=== PATIENT | female | born 2000 | race Caucasian/White ===

== ENCOUNTER 2020-06-14 04:20 | Inpatient (IN) ==
[2020-06-14] MEDS ORDERED: KETOROLAC 30 MG/ML VIAL IV ONE (04:42)
[2020-06-14] MEDS ORDERED: SODIUM CHLORIDE 0.9% 1000ML 1,000 ML IV ONE (04:42)
--- NOTE | 2020-06-14 04:50 | Emergency Department Note ---
History of Present Illness General Chief complaint: Back Injury/Pain Stated complaint: HARD TO BREATH, +COVID Time Seen by Provider: 06/14/20 04:31 Source: patient and family (mother father on speakerphone) Mode of arrival: ambulatory Limitations: no limitations History of Present Illness Provider complaint: + Covid, back pain Onset (ago): day(s) 4 Location: back Radiation: non-radiation Severity: moderate Pain Consistency: + intermittent Maximum Pain Intensity: 5 Current Pain Intensity: 5 Quality: + stabbing Relieved By: + immobilization Exacerbated By: + other (deep breath) Associated symptoms: + malaise and + weakness Treatments prior to arrival: other (Tylenol) This is a 20-year-old female who presents emergency department complaining of back pain. The patient reports she was tested for COVID on Monday. She received the test back for positive result on . She has been complaining of generalized rundown feeling since that time. She also vomited this morning. She has no other complaints however this morning woke up from severe back pain. She reports the pain started earlier today. She has been taken Tylenol thousand milligrams every 6 hours. She last took it at 3 AM. She is concerned that it is hurts to take a deep breath and is feeling extremely anxious. She reports she had nausea and vomiting this mornin. Home Medications Home Medications Medication Instructions Recorded Confirmed Type etonogestrel-ethinyl estradiol 1 vag ring VAGINAL CONT 06/14/20 06/14/20 History Allergies Allergy/AdvReac Type Severity Reaction Status Date / Time No Known Allergies Allergy Unverified 06/14/20 04:29 Past Med/Surg History Medical History No pertinent past medical history Social History Smoking Status: Never smoker Second Hand Exposure: No; Hx Alcohol Use: No Hx Substance Use: No Preferred Language: [place] Communication Ability: Effective Entry Level Account Executive Required: No Beliefs That Will Affect Care: None Current Living Situation: Alone Feels Safe at Home: Yes Review of Systems A total of 10 systems reviewed and were otherwise negative Physical Exam Vital Signs Vital Signs - 24 hr 06/14/20 04:25 06/14/20 06:08 09/13/20 06:13 Temperature 36.5 C Temperature Source Temporal Artery Scan Pulse Rate 67 Pulse Rate [Left Radial] 54 L Pulse Rhythm [Left Radial] Regular Pulse Strength [Left Radial] Normal Respiratory Rate 22 16 Respiratory Effort / Characteristics Non-Labored Spontaneous Non-Labored Respiratory Depth Normal Normal Respiratory Pattern Regular Blood Pressure 95/53 L Blood Pressure [Left Arm] 114/67 Blood Pressure Mean 67 Blood Pressure Mean [Left Arm] 82 Blood Pressure Position Sitting Blood Pressure Position [Left Arm] Lying Pulse Oximetry 99 99 99 Oxygen Delivery Method Room Air Room Air Sepsis Recent Fever Within 48 Hours No Sepsis New/Unexplained Change in Mental Status No Sepsis Action Taken by Nursing No Action Required VITAL SIGNS - Vital signs and nursing notes were reviewed. GENERAL - 20-year-old female appearing stated age who is in no acute distress, crying on exam. Communicates well with provider and answers questions appropriately. SKIN - Without rashes. HEAD - NC/AT. EYES - PERRL with EOMI bilaterally. Sclera anicteric. Palpebral conjunctiva pink and moist with no injection noted. EARS - No deformities of external structures noted on gross examination bilaterally. No pain elicited with palpation of the tragus bilaterally. External auditory canals without discharge or otorrhea. Tympanic membranes pearly bhakta without retraction or bulging. No fluid or purulent material visualized behind the TM. Handle of malleus, umbo, cone of light, pars tensa/flaccid all easily visualized. NOSE - Midline and without cyanosis. No epistaxis or purulent drainage noted. Septum midline without deviation or septal hematoma noted. MOUTH/OROPHARYNX - Without perioral cyanosis. Buccal mucosa pink and moist and without leukoplakia. Tongue midline with equal elevation of palate bilaterally. No tonsillar hypertrophy, erythema, or exudates noted. dentition noted. NECK - Neck with FROM. Supple to palpation. lymphadenopathy noted. No nuchal rigidity. LUNGS - Chest wall symmetric without accessory muscle use, intercostals retractions, or central cyanosis. Normal vesicular breath sounds CTA B/L. No wheezes, rales, or rhonchi appreciated. CARDIAC - RRR with S1/S2. No murmur, rubs, or gallops appreciated. ABDOMEN - Abdominal contour without pulsations or visible masses. BS normoactive all four quadrants. No tenderness, palpable masses, hepatosplenomegaly, or ascites noted. EXTREMITIES - No clubbing or peripheral cyanosis. No pretibial edema present. +3/5 radial, posterior tibial, and dorsalis pedis pulses palpated throughout. +5/5 strength noted in UE/LE bilaterally. NEUROLOGIC - Cranial nerves II through XII grossly intact. Sensory intact to light touch throughout. Patellar reflexes +2/4. PSYCH - A&Ox3 and cooperates fully with examiner. Pt is very pleasant and interacts well with examiner. Course Administered Medications Colchicine (Colchicine 0.6 Mg Tab) 0.6 mg PO BID HERMILO Stop: 07/14/20 10:44 Last Admin: 06/14/20 21:11 Dose: 0.6 mg Documented by: [id number] Admin: 06/14/20 12:04 Dose: 0.6 mg Documented by: [id number] Enoxaparin Sodium (Enoxaparin Inj 30 Mg/0.3 Ml Syr) 30 mg SQ Q12 HERMILO Stop: 07/14/20 14:59 Last Admin: 06/14/20 15:50 Dose: 30 mg Documented by: [id number] Dexamethasone Sodium Phosphate (4 mg/ Syringe) 1 mls @ 1 mls/min IV Q6H HERMILO Stop: 07/14/20 14:59 Last Admin: 06/14/20 21:07 Dose: 1 mls/min Documented by: [id number] Admin: 06/14/20 15:47 Dose: 1 mls/min Documented by: [id number] Metoprolol Tartrate (Metoprolol Tartrate 25 Mg Tab) 12.5 mg PO BID HERMILO Stop: 07/14/20 10:39 Last Admin: 06/14/20 21:11 Dose: 12.5 mg Documented by: [id number] Admin: 06/14/20 12:05 Dose: 12.5 mg Documented by: [id number] Morphine Sulfate (Morphine Sulfate 4 Mg/Ml 1 Ml Carp\Vial) 4 mg IV Q4 PRN PRN Reason: Pain Stop: 06/28/20 09:34 Last Admin: 06/14/20 21:51 Dose: 4 mg Documented by: [id number] Ondansetron HCl (Ondansetron Inj 2 Mg/Ml 2 Ml Vial) 4 mg IV Q6H PRN PRN Reason: Nausea Stop: 07/14/20 07:56 Last Admin: 06/14/20 21:52 Dose: 4 mg Documented by: [id number] Admin: 06/14/20 15:49 Dose: 4 mg Documented by: [id number] Admin: 06/14/20 09:48 Dose: 4 mg Documented by: [id number] Discontinued Medications Aspirin (Aspirin 81 Mg Ectab) 81 mg PO QAM HERMILO Stop: 07/14/20 08:59 Last Admin: 06/14/20 09:01 Dose: 81 mg Documented by: [id number] Heparin Sodium/Dextrose (Heparin Iv Standard *No* Bolus) 1 ea IV ONE ONE; Protocol Stop: 06/14/20 06:18 Last Admin: 06/14/20 06:26 Dose: Not Given Documented by: [id number] Sodium Chloride (Nss 1000ml) 1,000 mls @ 999 mls/hr IV .[id number] ONE Stop: 06/14/20 05:42 Last Infusion: 06/14/20 05:54 Dose: 0 mls/hr Documented by: [id number] Admin: 06/14/20 04:42 Dose: 999 mls/hr Documented by: [id number] Heparin Sodium/Dextrose (Heparin Sodium/Dextrose) 25,000 units in 500 mls @ 22 mls/hr IV .[id number] [facility]; Protocol Stop: 07/14/20 06:29 Last Admin: 06/14/20 06:26 Dose: Not Given Documented by: [id number] Heparin Sodium/Dextrose (Heparin Sodium/Dextrose) 25,000 units in 500 mls @ 22 mls/hr IV .[id number] HERMILO; Protocol Stop: 07/14/20 07:29 Last Titration: 06/14/20 19:32 Dose: 0 units/hr, 0 mls/hr Documented by: [id number] Cosigned by: [id number] Titration: 06/14/20 15:00 Dose: 0 units/hr, 0 mls/hr Documented by: [id number] Cosigned by: [id number] Admin: 06/14/20 09:19 Dose: 1,100 units/hr, 22 mls/hr Documented by: [id number] Cosigned by: [id number] Potassium Chloride/Sodium Chloride (Normal Saline W/20 Meq Kcl) 20 meq in 1,000 mls @ 70 mls/hr IV .[id number] HERMILO Stop: 07/14/20 08:29 Last Infusion: 06/14/20 15:47 Dose: 100 mls/hr Documented by: [id number] Admin: 06/14/20 09:01 Dose: 100 mls/hr Documented by: [id number] Dexamethasone 4 mg/ Dextrose 25.4 mls @ 100 mls/hr IV Q6H HERMILO Stop: 07/14/20 07:56 Last Admin: 06/14/20 09:19 Dose: Not Given Documented by: [id number] Dexamethasone Sodium Phosphate (10 mg/ Syringe) 2.5 mls @ 1 mls/min IV ONE ONE Stop: 06/14/20 08:17 Last Admin: 06/14/20 09:00 Dose: 1 mls/min Documented by: [id number] Potassium Phosphate 9 mmol/ (Sodium Chloride) 253 mls @ 145 mls/hr IV 1730 ONE Stop: 06/14/20 19:14 Last Infusion: 06/14/20 19:23 Dose: 0 mls/hr Documented by: [id number] Admin: 06/14/20 17:38 Dose: 145 mls/hr Documented by: [id number] Ioversol (Optiray 320 125ml) 118 ml IV ONCE ONE Stop: 06/14/20 07:04 Last Admin: 06/14/20 07:04 Dose: 118 ml Documented by: [id number] Ketorolac Tromethamine (Ketorolac 30 Mg/Ml Vial) 30 mg IV NOW ONE Stop: 06/14/20 04:43 Last Admin: 06/14/20 06:01 Dose: 30 mg Documented by: [id number] Morphine Sulfate (Morphine Sulfate 2 Mg/Ml Carp) 2 mg IV Q4 PRN PRN Reason: Pain Stop: 06/28/20 09:34 Last Admin: 06/14/20 15:48 Dose: 2 mg Documented by: [id number] Admin: 06/14/20 09:49 Dose: 2 mg Documented by: [id number] Morphine Sulfate (Morphine Sulfate 4 Mg/Ml 1 Ml Carp\Vial) 4 mg IV NOW STA Stop: 06/14/20 17:15 Last Admin: 06/14/20 17:28 Dose: 4 mg Documented by: [id number] Non-Formulary Medication (Etonogestrel-Ethinyl Estradiol) 1 vag ring PV CONT HERMILO Stop: 07/14/20 07:56 Last Admin: 06/14/20 09:00 Dose: Not Given Documented by: [id number] Potassium Chloride (Potassium Chloride 20 Meq Tabcr) 40 meq PO NOW STA Stop: 06/14/20 05:46 Last Admin: 06/14/20 06:06 Dose: 40 meq Documented by: [id number] Potassium Chloride (Potassium Chloride 20 Meq Tabcr) 20 meq PO NOW STA Stop: 06/14/20 14:38 Last Admin: 06/14/20 15:46 Dose: 20 meq Documented by: [id number] Critical Care Time I have personally spent greater than 30 minutes of critical care time in the direct management of this patient. This includes bedside care, interpretation of diagnostic studies, and testing, discussion with consultants, patient, and family members, and other required patient management activities. This 30 minutes is in excess of all separately billable procedures. Medical Decision Making Differential Diagnosis Cardiac ischemia, aortic dissection, pulmonary embolism, pneumothorax, pneumonia, pericarditis, myocarditis, esophageal rupture, GERD, cholecystitis, pancreatitis, musculoskeletal, as well as other pathologies. Medical Records Attestation: I reviewed the patient's medical records. Home Medications Current Medication List: was personally reviewed by me Laboratory Data Attestation: I reviewed the patient's lab results. Result diagrams: 06/14/20 04:55 06/14/20 16:15 Lab Results 06/14/20 06/14/20 06/14/20 Range/Units 04:55 04:55 04:55 WBC 8.40 (4.8-10.8) K/uL RBC 3.95 L (4.2-5.4) M/uL Hgb 11.9 L (12.0-16.0) g/dL POC Hgb (12.0-16.0) g/dl Hct 36.1 L (37-47) % POC Hct (37-47) % MCV 91.4 (80-100) fL MCH 30.1 (25-34) pg MCHC 33.0 (32-36) g/dL RDW Std Deviation 45.7 (36.4-46.3) fL RDW Coeff of Meek 13.5 (11.5-14.5) % Plt Count 274 (130-400) K/uL MPV 10.9 H (7.4-10.4) fL Immature Gran % (Auto) 0.2 % Neut % (Auto) 58.7 % Lymph % (Auto) 31.0 % Mcintosh % (Auto) 9.2 % Eos % (Auto) 0.7 % Baso % (Auto) 0.2 % Neut # (Auto) 4.93 (1.4-6.5) K/uL Lymph # (Auto) 2.60 (1.2-3.4) K/uL Mcintosh # (Auto) 0.77 H (0.11-0.59) K/uL Eos # (Auto) 0.06 (0-0.5) K/uL Baso # (Auto) 0.02 (0-0.2) K/uL Immature Gran # (Auto) 0.02 (0.00-0.02) K/uL ESR (0-21) mm/hr PT 11.4 (9.0-12.0) Seconds INR 1.1 (0.9-1.1) APTT 25.7 (21.0-31.0) Seconds PTT Ratio 0.9 D-Dimer < 190 (0-500) ug/L FEU POC Sodium (135-144) mmol/L Sodium 139 (136-145) mmol/L POC Potassium (3.3-5.0) mmol/L Potassium 3.2 L (3.5-5.1) mmol/L POC Chloride (101-112) mmol/L Chloride 106 (98-107) mmol/L Carbon Dioxide 24 (21-32) mmol/L POC Total CO2 (24-31) mmol/L Anion Gap 9.0 (3-11) POC Anion Gap (16-25) mmol/L POC BUN (7-18) mg/dl BUN 13 (7-18) mg/dl Creatinine 0.84 (0.6-1.2) mg/dl POC Creatinine mg/dl Est Cr Clr Drug Dosing 103.9 ml/min Est GFR ( Amer) 116.0 Est GFR (Non-Af Amer) 100.1 BUN/Creatinine Ratio 15.8 (10-20) Glucose 105 H (70-99) mg/dl POC Glucose (other) (70-99) mg/dl Calcium 9.0 (8.5-10.1) mg/dl POC Ioniz Calcium Franki mmol/l Ferritin (8-388) ng/ml Total Bilirubin 0.6 (0.2-1) mg/dl AST 103 H (15-37) U/L ALT 23 (12-78) U/L Alkaline Phosphatase 47 (45-117) U/L Lactate Dehydrogenase (84-246) U/L Total Creatine Kinase (26-192) U/L CK-MB (CK-2) (0.5-3.6) ng/ml CK/CKMB % Calc (0-3.0) Troponin I 20.400 H* (0-0.045) ng/ml Total Protein 7.8 (6.4-8.2) gm/dl Albumin 3.8 (3.4-5.0) gm/dl Globulin 4.0 (2.5-4.0) gm/dl Albumin/Globulin Ratio 1.0 (0.9-2) Lipase 102 (73-393) U/L HCG, Qual (Negative) 06/14/20 06/14/20 06/14/20 Range/Units 04:55 04:55 04:55 WBC (4.8-10.8) K/uL RBC (4.2-5.4) M/uL Hgb (12.0-16.0) g/dL POC Hgb (12.0-16.0) g/dl Hct (37-47) % POC Hct (37-47) % MCV (80-100) fL MCH (25-34) pg MCHC (32-36) g/dL RDW Std Deviation (36.4-46.3) fL RDW Coeff of Meek (11.5-14.5) % Plt Count (130-400) K/uL MPV (7.4-10.4) fL Immature Gran % (Auto) % Neut % (Auto) % Lymph % (Auto) % Mcintosh % (Auto) % Eos % (Auto) % Baso % (Auto) % Neut # (Auto) (1.4-6.5) K/uL Lymph # (Auto) (1.2-3.4) K/uL Mcintosh # (Auto) (0.11-0.59) K/uL Eos # (Auto) (0-0.5) K/uL Baso # (Auto) (0-0.2) K/uL Immature Gran # (Auto) (0.00-0.02) K/uL ESR (0-21) mm/hr PT (9.0-12.0) Seconds INR (0.9-1.1) APTT (21.0-31.0) Seconds PTT Ratio D-Dimer (0-500) ug/L FEU POC Sodium (135-144) mmol/L Sodium (136-145) mmol/L POC Potassium (3.3-5.0) mmol/L Potassium (3.5-5.1) mmol/L POC Chloride (101-112) mmol/L Chloride (98-107) mmol/L Carbon Dioxide (21-32) mmol/L POC Total CO2 (24-31) mmol/L Anion Gap (3-11) POC Anion Gap (16-25) mmol/L POC BUN (7-18) mg/dl BUN (7-18) mg/dl Creatinine (0.6-1.2) mg/dl POC Creatinine mg/dl Est Cr Clr Drug Dosing ml/min Est GFR ( Amer) Est GFR (Non-Af Amer) BUN/Creatinine Ratio (10-20) Glucose (70-99) mg/dl POC Glucose (other) (70-99) mg/dl Calcium (8.5-10.1) mg/dl POC Ioniz Calcium Franki mmol/l Ferritin 28.7 (8-388) ng/ml Total Bilirubin (0.2-1) mg/dl AST (15-37) U/L ALT (12-78) U/L Alkaline Phosphatase (45-117) U/L Lactate Dehydrogenase 309 H (84-246) U/L Total Creatine Kinase 745 H (26-192) U/L CK-MB (CK-2) 62.3 H (0.5-3.6) ng/ml CK/CKMB % Calc 8.4 H (0-3.0) Troponin I (0-0.045) ng/ml Total Protein (6.4-8.2) gm/dl Albumin (3.4-5.0) gm/dl Globulin (2.5-4.0) gm/dl Albumin/Globulin Ratio (0.9-2) Lipase (73-393) U/L HCG, Qual Negative (Negative) 06/14/20 06/14/20 Range/Units 04:55 05:18 WBC (4.8-10.8) K/uL RBC (4.2-5.4) M/uL Hgb (12.0-16.0) g/dL POC Hgb 11.6 L (12.0-16.0) g/dl Hct (37-47) % POC Hct 34 L (37-47) % MCV (80-100) fL MCH (25-34) pg MCHC (32-36) g/dL RDW Std Deviation (36.4-46.3) fL RDW Coeff of Meek (11.5-14.5) % Plt Count (130-400) K/uL MPV (7.4-10.4) fL Immature Gran % (Auto) % Neut % (Auto) % Lymph % (Auto) % Mcintosh % (Auto) % Eos % (Auto) % Baso % (Auto) % Neut # (Auto) (1.4-6.5) K/uL Lymph # (Auto) (1.2-3.4) K/uL Mcintosh # (Auto) (0.11-0.59) K/uL Eos # (Auto) (0-0.5) K/uL Baso # (Auto) (0-0.2) K/uL Immature Gran # (Auto) (0.00-0.02) K/uL ESR 4 (0-21) mm/hr PT (9.0-12.0) Seconds INR (0.9-1.1) APTT (21.0-31.0) Seconds PTT Ratio D-Dimer (0-500) ug/L FEU POC Sodium 139 (135-144) mmol/L Sodium (136-145) mmol/L POC Potassium 3.6 (3.3-5.0) mmol/L Potassium (3.5-5.1) mmol/L POC Chloride 104 (101-112) mmol/L Chloride (98-107) mmol/L Carbon Dioxide (21-32) mmol/L POC Total CO2 22 L (24-31) mmol/L Anion Gap (3-11) POC Anion Gap 17.0 (16-25) mmol/L POC BUN 14 (7-18) mg/dl BUN (7-18) mg/dl Creatinine (0.6-1.2) mg/dl POC Creatinine 0.6 mg/dl Est Cr Clr Drug Dosing ml/min Est GFR ( Amer) Est GFR (Non-Af Amer) BUN/Creatinine Ratio (10-20) Glucose (70-99) mg/dl POC Glucose (other) 108 H (70-99) mg/dl Calcium (8.5-10.1) mg/dl POC Ioniz Calcium Franki 1.10 mmol/l Ferritin (8-388) ng/ml Total Bilirubin (0.2-1) mg/dl AST (15-37) U/L ALT (12-78) U/L Alkaline Phosphatase (45-117) U/L Lactate Dehydrogenase (84-246) U/L Total Creatine Kinase (26-192) U/L CK-MB (CK-2) (0.5-3.6) ng/ml CK/CKMB % Calc (0-3.0) Troponin I (0-0.045) ng/ml Total Protein (6.4-8.2) gm/dl Albumin (3.4-5.0) gm/dl Globulin (2.5-4.0) gm/dl Albumin/Globulin Ratio (0.9-2) Lipase (73-393) U/L HCG, Qual (Negative) MDM Narrative Patient was seen and evaluated as above in room C9. Review was performed of nursing notes and vital signs. I did review pertinent previous visits and patient history. After obtaining a thorough history and physical examination the above work up was performed. This is a 20-year-old female who presents the emergency department complaining of back pain. The patient has a history of positive givens test. Using shared medical decision making with the patient and her parents the decision was made to initiate a full cardiac work-up including d-dimer as well as troponin. I will note that the patient does not have an elevation in her white blood cell count. Her potassium was found to be low and was repleted here in the emergency department. The patient's troponin was found to be grossly elevated. Due to this and because of the back pain I did send the patient for dissection study which was found to be normal. I did discuss the case with the hospitalist serv cristopher who did agree to admit the patient. Patient was initially started on Toradol as well as a heparin drip. An order was placed for continuous cardiac monitoring. The monitor shows a rate of 67 with Normal Sinus rhythm. The patient was evaluated during the global COVID-19 pandemic, and that d iagnosis was suspected/considered upon their initial presentation. Their evaluation, treatment and testing was consistent with current guidelines for patients who present with complaints or symptoms that may be related to COVID- 19. Impression & Plan Lab test positive for detection of COVID-19 virus, Back pain Discharge Plan Visit Data Chief Complaint: Back Injury/Pain Stated Complaint: HARD TO BREATH, +COVID ED Provider: Isaiah Sy Discharge Problem: Lab test positive for detection of COVID-19 virus, Back pain Patient Disposition: Home - Self-Care Condition: Good Discharge Instructions Interventions: ED Discharge Assessment Last Done: 06/14/20 07:20 Discharge Problem: Back pain Qualifiers: Back pain location: thoracic back pain Chronicity: acute Back pain laterality: left Qualified Code(s): M54.6 - Pain in thoracic spine
[2020-06-14 05:15] LABS: Basophils # (auto) 0.02 K/uL (0-0.2); Basophils % (auto) 0.2 %; Eosinophils # (auto) 0.06 K/uL (0-0.5); Eosinophils % (auto) 0.7 %; Hematocrit (blood only) 36.1 % (37-47); Hemoglobin 11.9 g/dL (12.0-16.0); Immature Granulocytes # (auto) 0.02 K/uL (0.00-0.02); Immature Granulocytes % (auto) 0.2 %; Mean Corpuscular Hemoglobin 30.1 pg (25-34); Mean Corpuscular Volume 91.4 fL (80-100); Mean Platelet Volume 10.9 fL (7.4-10.4); Monocytes # (auto) 0.77 K/uL (0.11-0.59); Monocytes % (auto) 9.2 %; Neutrophils # (auto) 4.93 K/uL (1.4-6.5); Neutrophils % (auto) 58.7 %; Platelet Count 274 K/uL (130-400); RDW Coefficient of Variation 13.5 % (11.5-14.5); RDW Standard Deviation 45.7 fL (36.4-46.3); Red Blood Count 3.95 M/uL (4.2-5.4)
[2020-06-14 05:24] LABS: D Dimer < 190 ug/L FEU (0-500); INR 1.1 (0.9-1.1); Partial Thromboplastin Ratio 0.9; Partial Thromboplastin Time 25.7 Seconds (21.0-31.0); Prothrombin Time 11.4 Seconds (9.0-12.0)
[2020-06-14 05:41] LABS: Albumin Level 3.8 gm/dl (3.4-5.0); BUN Creatinine Ratio 15.8 (10-20); Creatinine Clr Calc Pharmacy 103.9 ml/min; Est GFR (Non-African American) 100.1; Potassium 3.2 mmol/L (3.5-5.1); Pregnancy Test, Serum Negative (Negative)
[2020-06-14 05:43] LABS: iSTAT Creatinine 0.6 mg/dl; iSTAT Hemoglobin 11.6 g/dl (12.0-16.0); iSTAT Ionized Calcium 1.1 mmol/l; iSTAT Potassium 3.6 mmol/L (3.3-5.0)
[2020-06-14] MEDS ORDERED: POTASSIUM CHLORIDE 20 MEQ TABCR PO STA ×2 (05:45→14:37)
[2020-06-14 05:56] LABS: Bilirubin,Total 0.6 mg/dl (0.2-1); Total Protein 7.8 gm/dl (6.4-8.2); Troponin I 20.4 ng/ml (0-0.045)
[2020-06-14] MEDS ORDERED: Heparin IV Standard *NO* Bolus IV ONE (06:17)
[2020-06-14] MEDS ORDERED: HEPARIN SODIUM/DEXTROSE 25,000 UNITS/500 ML BAG IV SCH ×2 (06:30→07:30)
[2020-06-14 06:45] LABS: Creatine Kinase MB 62.3 ng/ml (0.5-3.6); Ferritin 28.7 ng/ml (8-388)
[2020-06-14] MEDS ORDERED: OPTIRAY 320 125ml IV ONE (07:03)
--- NOTE | 2020-06-14 07:14 | History & Physical Report ---
Date of Service June 14, 2020 Assessment & Plan (1) Myocarditis due to 2019 novel coronavirus: Myocarditis due to COVID 19/elevated troponin- The patient will be admitted to telemetry for serial cardiac enzymes, serial EKG's, cardiac rhythm monitoring and a 2-D echocardiogram with Dopplers. Decadron 10 mg IV now then 4 mg IV every 6 hours. Consult cardiology. Present on Admission?: Yes (2) Elevated troponin I level: Elevated troponin I level/elevated CK-MB ratio/normal d-dimer- Discussed with cardiology need for anticoagulation, with concerns for possible myocarditis. Present on Admission?: Yes (3) Hypokalemia: Potassium 3.2 upon admission. NSS + KCl 20 mEq at 100 mils per hour Present on Admission?: Yes (4) Lab test positive for detection of COVID-19 virus: Test is positive from [facility] on 06/08/2020 Present on Admission?: Yes History of Present Illness Chief Complaint: The patient presents to the emergency department with complaint of severe back pain that began within the past 24 hours. Primary Care Provider: NO PCP The patient is a 20-year-old female with no significant past medical history, who presents to the emergency department with complaint of severe interscapular pain that began overnight. She reports that her symptoms initially began July 02 of generalized fatigue, muscle aches and malaise. She did get a report of a positive COVID-19 test from emergency health services on June 08, had worsening of her symptoms on June 09, and then developed symptoms of severe back pain this past evening. Work-up in the emergency department included abnormal laboratories with troponin of 20.4, total CK 745, CK-MB 62.3, CK-MB ratio 8.4, and AST 103. I have asked that a CTA of chest be ordered by the ED to further assess back pain possibility of aortic dissection, and get view of possible pericardial effusion. Allergies Allergy/AdvReac Type Severity Reaction Status Date / Time No Known Allergies Allergy Unverified 06/14/20 04:29 Home Medications Home Medications Medication Instructions Recorded Confirmed Type etonogestrel-ethinyl estradiol 1 vag ring VAGINAL CONT 06/14/20 06/14/20 History Past Med/Surg History Medical History No pertinent past medical history Social History Smoking Status: Never smoker Preferred Language: Pashto Feels Safe at Home: Yes Review of Systems Review of Systems: The patient denies palpitations, cough, lower extremity swelling, sore throat, fevers, chills, sweats, nausea, vomiting, diarrhea , constipation, abdominal pain, pelvic pain, blood in urine or stool, dysuria, urinary frequency or urgency, lightheadedness, dizziness, headache, memory loss, loss of consciousness, rash, abnormal bruising or bleeding, imbalance, focal weakness, numbness or tingling in arms or legs, neck pain, or night sweats. The review of systems is otherwise negative other than for that already noted above, and at least 10 systems have been reviewed. Physical Exam Physical Exam: The patient is awake, alert and oriented 3, well developed and well nourished, normocephalic and atraumatic, lying in bed and in no acute distress. HEENT--PERRL, EOMI, mucous membranes and oropharynx mildly dry. Neck--supple. No JVD. No bruits. Thyroid normal, trachea midline, no adenopathy. Heart--normal S1 and S2. No murmurs, rubs or gallops. Lungs--clear bilaterally, no respiratory distress, no accessory muscle use. Abdomen--normal bowel sounds and soft. Nontender. Nondistended, no hernias or masses, no organomegaly. Extremities--no cyanosis or clubbing. No edema. Dermatologic--normal skin turgor, normal color, no abnormal lymph nodes, no ra sh. Neurologic--cranial nerves II through XII grossly intact. Rheumatologic--normal range of motion. Psychiatric--normal affect. Results & Data Results & Data ([facility]) Vital Signs (Past 12 Hours) Vital Signs Temp Pulse Pulse Resp BP BP Pulse Ox 06/14/20 06:13 99 06/14/20 06:08 54 L 16 114/67 99 06/14/20 04:25 97.7 F 67 22 95/53 L 99 Laboratory Results Laboratory Results WBC 8.40 K/uL (4.8-10.8) 06/14/20 04:55 RBC 3.95 M/uL (4.2-5.4) L 06/14/20 04:55 Hgb 11.9 g/dL (12.0-16.0) L 06/14/20 04:55 POC Hgb 11.6 g/dl (12.0-16.0) L 06/14/20 05:18 Hct 36.1 % (37-47) L 06/14/20 04:55 POC Hct 34 % (37-47) L 06/14/20 05:18 MCV 91.4 fL (80-100) 06/14/20 04:55 MCH 30.1 pg (25-34) 06/14/20 04:55 MCHC 33.0 g/dL (32-36) 06/14/20 04:55 RDW Std Deviation 45.7 fL (36.4-46.3) 06/14/20 04:55 RDW Coeff of Meek 13.5 % (11.5-14.5) 06/14/20 04:55 Plt Count 274 K/uL (130-400) 06/14/20 04:55 MPV 10.9 fL (7.4-10.4) H 06/14/20 04:55 Immature Gran % (Auto) 0.2 % 06/14/20 04:55 Neut % (Auto) 58.7 % 06/14/20 04:55 Lymph % (Auto) 31.0 % 06/14/20 04:55 [place] % (Auto) 9.2 % 06/14/20 04:55 Eos % (Auto) 0.7 % 06/14/20 04:55 Baso % (Auto) 0.2 % 06/14/20 04:55 Neut # (Auto) 4.93 K/uL (1.4-6.5) 06/14/20 04:55 Lymph # (Auto) 2.60 K/uL (1.2-3.4) 06/14/20 04:55 [place] # (Auto) 0.77 K/uL (0.11-0.59) H 06/14/20 04:55 Eos # (Auto) 0.06 K/uL (0-0.5) 06/14/20 04:55 Baso # (Auto) 0.02 K/uL (0-0.2) 06/14/20 04:55 Immature Gran # (Auto) 0.02 K/uL (0.00-0.02) 06/14/20 04:55 PT 11.4 Seconds (9.0-12.0) 06/14/20 04:55 INR 1.1 (0.9-1.1) 06/14/20 04:55 APTT 25.7 Seconds (21.0-31.0) 06/14/20 04:55 PTT Ratio 0.9 06/14/20 04:55 D-Dimer < 190 ug/L FEU (0-500) 06/14/20 04:55 POC Sodium 139 mmol/L (135-144) 06/14/20 05:18 Sodium 139 mmol/L (136-145) 06/14/20 04:55 POC Potassium 3.6 mmol/L (3.3-5.0) 06/14/20 05:18 Potassium 3.2 mmol/L (3.5-5.1) L 06/14/20 04:55 POC Chloride 104 mmol/L (101-112) 06/14/20 05:18 Chloride 106 mmol/L (98-107) 06/14/20 04:55 Carbon Dioxide 24 mmol/L (21-32) 06/14/20 04:55 POC Total CO2 22 mmol/L (24-31) L 06/14/20 05:18 Anion Gap 9.0 (3-11) 06/14/20 04:55 POC Anion Gap 17.0 mmol/L (16-25) 06/14/20 05:18 POC BUN 14 mg/dl (7-18) 06/14/20 05:18 BUN 13 mg/dl (7-18) 06/14/20 04:55 Creatinine 0.84 mg/dl (0.6-1.2) 06/14/20 04:55 POC Creatinine 0.6 mg/dl 06/14/20 05:18 Est Cr Clr Drug Dosing 103.9 ml/min 06/14/20 04:55 Est GFR ( Amer) 116.0 06/14/20 04:55 Est GFR (Non-Af Amer) 100.1 06/14/20 04:55 BUN/Creatinine Ratio 15.8 (10-20) 06/14/20 04:55 Glucose 105 mg/dl (70-99) H 06/14/20 04:55 POC Glucose (other) 108 mg/dl (70-99) H 06/14/20 05:18 Calcium 9.0 mg/dl (8.5-10.1) 06/14/20 04:55 POC Ioniz Calcium Franki 1.10 mmol/l 06/14/20 05:18 Ferritin 28.7 ng/ml (8-388) 06/14/20 04:55 Total Bilirubin 0.6 mg/dl (0.2-1) 06/14/20 04:55 AST 103 U/L (15-37) H 06/14/20 04:55 ALT 23 U/L (12-78) 06/14/20 04:55 Alkaline Phosphatase 47 U/L (45-117) 06/14/20 04:55 Lactate Dehydrogenase 309 U/L (84-246) H 06/14/20 04:55 Total Creatine Kinase 745 U/L (26-192) H 06/14/20 04:55 CK-MB (CK-2) 62.3 ng/ml (0.5-3.6) H 06/14/20 04:55 CK/CKMB % Calc 8.4 (0-3.0) H 06/14/20 04:55 Troponin I 20.400 ng/ml (0-0.045) H* 06/14/20 04:55 Total Protein 7.8 gm/dl (6.4-8.2) 06/14/20 04:55 Albumin 3.8 gm/dl (3.4-5.0) 06/14/20 04:55 Globulin 4.0 gm/dl (2.5-4.0) 06/14/20 04:55 Albumin/Globulin Ratio 1.0 (0.9-2) 06/14/20 04:55 Lipase 102 U/L (73-393) 06/14/20 04:55 HCG, Qual Negative (Negative) 06/14/20 04:55 Code Status & VTE Plan Code Status Full code VTE Prophylaxis Plan VTE Prophylaxis will be ordered: Yes PG Care Time/CCT Total # of Minutes Spent Total Time Spent with Patient: Total time spent is greater than 50% in coordination of care (as documented) at patient's floor/unit and/or counseling patient: Coding Level of Care Code 75039 Initial Inpt Care Lvl 3 Diagnoses Myocarditis due to 2019 novel coronavirus U07.1; I40.0 Elevated troponin I level R79.89 Hypokalemia E87.6 Lab test positive for detection of COVID-19 virus U07.1
--- NOTE | 2020-06-14 07:15 | CT Scan Report ---
CT ANGIOGRAPHY OF THE CHEST DISSECTION PROTOCOL CLINICAL HISTORY: back pain, elevated troponin. Evaluate for dissection. COMPARISON STUDY: Chest radiograph June 14, 2020. TECHNIQUE: Before and following the IV administration of 118 mL of Optiray-320, helical axial images of the chest were obtained. Maximal intensity projections and sagittal and coronal reformats were vi ewed on an independent 3D workstation. IV contrast was administered without complication. Automated exposure control was utilized for the study. A dose lowering technique was utilized adhering to the principles of ALARA. CT DOSE: 650.78 mGycm FINDINGS: The caliber of the thoracic aorta is normal. There is no intramural hematoma or thoracic a ortic dissection. Size of the heart is at the upper limits of normal. There is no pericardial effusio n. No pulmonary embolus is identified. There is no consolidation. Central airways are patent. No pneu mothorax or pleural effusion is noted. Bony thorax and upper abdomen are unremarkable. There is no th oracic lymphadenopathy. IMPRESSION: 1. No thoracic aortic dissection. 2. No acute findings within the chest. ACT 112: Negative or not required by law. Electronically signed by: Dave Lynch M.D. 06/14/2020 7:13 AM
[2020-06-14] MEDS ORDERED: Heparin IV Low Dose *NO* Bolus ONE (07:22)
--- NOTE | 2020-06-14 07:28 | XRay Report ---
XR chest 1V portable CLINICAL HISTORY: Chest Pain COMPARISON STUDY: No previous studies for comparison. FINDINGS: Lung volumes are normal. Lungs are clear. There is no pneumothorax or pleural effusion. Car diac size is normal. Mediastinal contours are normal. There is no evidence for pulmonary edema. IMPRESSION: No acute cardiopulmonary findings. ACT 112: Negative or not required by law. Electronically signed by: Dave Lynch M.D. 06/14/2020 7:27 AM
[2020-06-14] MEDS ORDERED: dexAMETHasone 4 MG in DEXTROSE 5% 25 ML IV SCH (07:57)
[2020-06-14] MEDS ORDERED: ZOLPIDEM TARTRATE 5 MG TAB PO PRN (07:57)
[2020-06-14] MEDS ORDERED: ETONOGESTREL ETHINYL ESTRADIOL PV SCH (07:57)
[2020-06-14] MEDS ORDERED: DEXAMETHASONE SOD INJ 10 MG/ML VIAL IV ONE (07:57)
[2020-06-14] MEDS ORDERED: DEXAMETHASONE SOD PHOSPHATE 10 MG in SYRINGE 0 ML IV ONE (08:15)
[2020-06-14] MEDS ORDERED: ASPIRIN 81 MG ECTAB PO SCH (09:00)
[2020-06-14] MEDS: NSS + 20MEQ KCL 20 MEQ/1,000 ML BAG IV SCH ×2 (09:01→15:47)
[2020-06-14] MEDS: ONDANSETRON INJ 2 MG/ML 2 ML VIAL IV PRN ×3 (09:48→21:52)
[2020-06-14] MEDS: MoRPHine SULFATE 2 MG/ML CARP IV PRN ×2 (09:49→15:48)
--- NOTE | 2020-06-14 10:03 | Electrocardiogram Report ---
Test Reason : Blood Pressure : / mmHG Vent. Rate : 061 BPM Atrial Rate : 061 BPM P-R Int : 160 ms QRS Dur : 078 ms QT Int : 430 ms P-R-T Axes : 049 014 033 degrees QTc Int : 432 ms Normal sinus rhythm with sinus arrhythmia Low voltage QRS Borderline ECG No previous ECGs available Confirmed by Trip Cagle ([id number]) on 06/14/2020 10:03:18 AM Referred By: REFERRED SELF Confirmed By:Trip Cagle
--- NOTE | 2020-06-14 11:52 | Cardiology Consultation ---
Date of Consultation Today's visit was performed as a virtual visit over the phone. Patient was in the hospital and I was in the nursing station. She was identified by name and date of . She consented to a virtual visit. I spent well over 30 minutes discussing her case both with Lillie as well as Dr. Kay She was tested for COVID on June 04 at [email or web address]. She did not receive her results till June 10.She notes on she started feeling poorly. This progressed into Monday she just thought it was related to her COVID. She noted increasing fatigue along with some mild shortness of breath. Yesterday she had fevers and chills and Rigor's. She also had scapular discomfort that she notes she just could not get comfortable and would not go a way. She notes standing made it better she tried to avoid any pressure on her back if at all possible. She does note that taking a deep breath did make it slightly worse.She notes morphine today has helped her discomfort the dexamethasone did not help her discomfort at all. She is unaware of any palpitations or fluttering or feeling her heart racing. She denies any lightheadedness or orthostatic symptoms. She denies any lower extremity edema. In her apartment she was taking the elevator but she notes just with walking she was feeling some mild shortness of breath. She denies any sudden onset sudden offset of her heart racing. She denies any orthopnea.The rest of a complete her systems otherwise negative June 14, 2020 History of Present Illness Attending Physician: Wilma Kay MD Allergies Allergy/AdvReac Type Severity Reaction Status Date / Time No Known Allergies Allergy Unverified 06/14/20 04:29 Home Medications Home Medications Medication Instructions Recorded Confirmed Type etonogestrel-ethinyl estradiol 1 vag ring VAGINAL CONT 06/14/20 06/14/20 History Patient History Medical History No pertinent past medical history Social History Smoking Status: Never smoker Second Hand Exposure: No; Hx Alcohol Use: No Hx Substance Use: No Preferred Language: Japanese Communication Ability: Effective 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 EKG normal sinus rhythm normal ECG security monitor reveals occasional PVCs and occasional ventricular couplets which are asymptomatic Echocardiogram is pending First troponin is 20 CT angiogram of her chest is negative for PE or aortic dissection or pericardial effusion Impression: 1. myocarditis secondary to COVID-19 2. COVID infection 3. PVCs and ventricular couplets In discussion with Dr. Kay we will add colchicine 0.6 mg twice daily which should help with her discomfort. Her echocardiogram is pending we will add low- dose metoprolol 12-1/2 mg twice daily she notes her resting heart rate is usually between 65 and 75 bpm.Her potassium and magnesium areBeing assessed. Her potassium is being repleted her magnesium is currently pending. I would keep her potassium greater than 4 and magnesium greater than 2. Primary COVID therapy will be addressed by the hospitalist service.Depending on her ejection fraction will depend on the need for serial echocardiography. We will obtain a strain images today. If there is concern for significant LV dysfunction she ultimately may need cardiac MRI.She will have restrictions in her ability to exercise for at least 3 if not 6 months based on the myocarditis guidelines from [employer]
[2020-06-14 11:55] LABS: Magnesium 2.2 mg/dl (1.8-2.4)
[2020-06-14] MEDS: COLCHICINE 0.6 MG TAB PO SCH ×2 (12:04→21:11)
[2020-06-14] MEDS: METOPROLOL TARTRATE 25 MG TAB PO SCH ×2 (12:05→21:11)
[2020-06-14 12:27] LABS: Troponin I 52.8 ng/ml (0-0.045)
[2020-06-14] MEDS: DEXAMETHASONE SOD PHOSPHATE 4 MG in SYRINGE 0 ML IV SCH ×2 (15:47→21:07)
[2020-06-14] MEDS: ENOXAPARIN INJ 30 MG/0.3 ML SYR SQ SCH (15:50)
--- NOTE | 2020-06-14 16:06 | History & Physical Bridge Note ---
Date of Service June 14, 2020 History & Physical Bridge Note I have examined the patient, reviewed the History & Physical and in the interval since the performance of the History & Physical I have noted the following changes of clinical significance: Patient was having severe upper back pain today requiring increasing doses of morphine. She was also having continued frequent ectopy and had a 17 beat run of ventricular tachycardia this afternoon. Echocardiogram showed preserved EF and mild LVH, no pericardial effusion. Troponin trended upward to 52. Electrolytes continue to be replaced throughout the day. She denied any shortness of breath or cough, no headache or sore throat, no other pains or rashes. No diarrhea or nausea. She was tolerating p.o. I discussed her case with cardiology. Vitals reviewed Gen: AAOx3, NAD HEENT: Anicteric sclerae, EOMI CV: RRR with frequent ectopy, no mgr nl S1S2 Pulm: CTAB no wcr Abd: +BS soft NT ND no masses or hernias Ext: No edema, 2+ DP pulses Skin: No rashes, warm/dry Neuro: Full strength throughout Laboratory values reviewed CT chest and chest x-ray images personally reviewed ECG reviewed with normal sinus rhythm, otherwise normal Echocardiogram as noted above with preserved EF, no wall motion abnormalities, no pericardial effusion 20-year-old healthy female with no significant past medical history, here with COVID-19 associated myocarditis. With frequent PVCs and 17 beat run of ventricular tachycardia Troponin up to 52 With severe upper back pain now relieved with higher doses of morphine, as well as IV dexamethasone, and started on colchicine. -Added metoprolol 12.5 mg p.o. twice daily and titrate up as blood pressure and heart rate allow -Continue to follow electrolytes and replace potassium to minimum of 4.0, magnesium minimum of 2.0, and phosphorus to minimum 3.0 -If continues to have nonsustained or sustained ventricular tachycardia, recommend to start IV amiodarone as per discussion with cardiology -Repeat limited echocardiogram again in the morning to reassess LV function and for strain -Follow-up proBNP-currently just under the upper limit of normal -DC IV fluids as is taking p.o. fluids and eating well in an effort to avoid volume overload -Continue morphine 4 mg IV every 4 hours as needed pain -Continue IV dexamethasone 4 mg IV every 6 hours for myocarditis and for COVID -Could consider starting Remdesivir if condition worsens, but not at this time Follow ESR, CRP, CMP, CPK, LDH, ferritin, CBC, d-dimer, magnesium, phosphorus, and troponin -DC IV heparin drip -Start Lovenox 30 mg SQ every 12 hours for DVT prophylaxis -Recommend she not restart her new NuvaRing today given possibility of increasing risk for VTE-recommended she use a backup method of control such as condoms for the next month until she is back on her NuvaRing. hCG here is negative I called her parents at her request and discussed her diagnosis and prognosis.
[2020-06-14] MEDS ORDERED: MoRPHine SULFATE 4 MG/ML 1 ML CARP\\VIAL IV PRN (16:20)
[2020-06-14 16:44] LABS: BUN Creatinine Ratio 9.5 (10-20); Blood Urea Nitrogen 7 mg/dl (7-18); Carbon Dioxide 26 mmol/L (21-32); Chloride 108 mmol/L (98-107); Creatinine Clr Calc Pharmacy 119.5 ml/min; Est GFR (African American) 137.4; Est GFR (Non-African American) 118.6; Glucose 135 mg/dl (70-99); Magnesium 2.1 mg/dl (1.8-2.4); Sodium 141 mmol/L (136-145)
[2020-06-14 16:49] LABS: C Reactive Protein < 0.29 mg/dl (0-0.29); NT Pro B Type Natriuretic Pept 449 pg/ml (0-450); Phosphorus 2.4 mg/dl (2.5-4.9)
[2020-06-14] MEDS ORDERED: POTASSIUM PHOS 3 MMOL/1 ML INFUSION IV STA (16:56)
[2020-06-14] MEDS ORDERED: MoRPHine SULFATE 4 MG/ML 1 ML CARP\\VIAL IV STA (17:14)
[2020-06-14 17:22] LABS: Adenovirus PCR Not Detected (NotDetected); Bordetella parapertussis PCR Not Detected (NotDetected); Bordetella pertussis PCR Not Detected (NotDetected); Chlamydia pneumoniae PCR Not Detected (NotDetected); Coronavirus 229E PCR Not Detected (NotDetected); Coronavirus HKU1 PCR Not Detected (NotDetected); Coronavirus NL63 PCR Not Detected (NotDetected); Coronavirus OC43PCR Not Detected (NotDetected); Human Metapneumovirus PCR Not Detected (NotDetected); Influenza A PCR Not Detected (NotDetected); Influenza B PCR Not Detected (NotDetected); Mycoplasma pneumoniae PCR Not Detected (NotDetected); Parainfluenza Virus 1 PCR Not Detected (NotDetected); Parainfluenza Virus 2 PCR Not Detected (NotDetected); Parainfluenza Virus 3 PCR Not Detected (NotDetected); Parainfluenza Virus 4 PCR Not Detected (NotDetected); Respiratory Syncytial VirusPCR Not Detected (NotDetected); Rhinovirus/Enterovirus PCR Not Detected (NotDetected)
[2020-06-14] MEDS ORDERED: POTASSIUM PHOSPHATE 9 MMOL in SODIUM CHLORIDE 0.9% 250 ML IV ONE (17:30)
[2020-06-14 17:57] LABS: Coronavirus CoV-2 (COVID19)PCR DETECTED (NotDetected)
[2020-06-14] MEDS: MoRPHine SULFATE 4 MG/ML 1 ML CARP\\VIAL IV PRN (21:51)
[2020-06-15] MEDS: ENOXAPARIN INJ 30 MG/0.3 ML SYR SQ SCH ×3 (00:02→22:11)
[2020-06-15 03:24] LABS: BUN Creatinine Ratio 11.3 (10-20); Calcium 8.9 mg/dl (8.5-10.1); Creatinine Clr Calc Pharmacy 119.5 ml/min; Est GFR (African American) 137.4; Est GFR (Non-African American) 118.6; Potassium 4.3 mmol/L (3.5-5.1)
[2020-06-15 03:28] LABS: Phosphorus 3.6 mg/dl (2.5-4.9)
[2020-06-15] MEDS: DEXAMETHASONE SOD PHOSPHATE 4 MG in SYRINGE 0 ML IV SCH ×2 (03:52→08:24)
[2020-06-15 06:32] LABS: Hematocrit (blood only) 35.2 % (37-47); Hemoglobin 11.7 g/dL (12.0-16.0); Immature Granulocytes # (auto) 0.02 K/uL (0.00-0.02); Immature Granulocytes % (auto) 0.2 %; Lymphocytes # (auto) 0.91 K/uL (1.2-3.4); Lymphocytes % (auto) 8.3 %; Mean Corpuscular Hemoglobin 30.2 pg (25-34); Mean Corpuscular Hgb Conc 33.2 g/dL (32-36); Mean Platelet Volume 11.4 fL (7.4-10.4); Monocytes % (auto) 4.6 %; Neutrophils # (auto) 9.47 K/uL (1.4-6.5); Neutrophils % (auto) 86.9 %; Platelet Count 269 K/uL (130-400); RDW Coefficient of Variation 13.6 % (11.5-14.5); RDW Standard Deviation 44.8 fL (36.4-46.3); Red Blood Count 3.87 M/uL (4.2-5.4)
[2020-06-15] MEDS: ONDANSETRON INJ 2 MG/ML 2 ML VIAL IV PRN (06:41)
[2020-06-15] MEDS: MoRPHine SULFATE 4 MG/ML 1 ML CARP\\VIAL IV PRN (06:41)
[2020-06-15 06:42] LABS: D Dimer < 190 ug/L FEU (0-500)
[2020-06-15 07:03] LABS: Alanine Aminotransferase 49 U/L (12-78); Albumin Level 3.6 gm/dl (3.4-5.0); Aspartate Aminotransferase 269 U/L (15-37); BUN Creatinine Ratio 13.1 (10-20); Blood Urea Nitrogen 8 mg/dl (7-18); Calcium 8.9 mg/dl (8.5-10.1); Carbon Dioxide 27 mmol/L (21-32); Chloride 106 mmol/L (98-107); Creatinine Clr Calc Pharmacy 136.4 ml/min; Est GFR (African American) 148.9; Est GFR (Non-African American) 128.5; Glucose 114 mg/dl (70-99); Magnesium 2.1 mg/dl (1.8-2.4); Potassium 4.1 mmol/L (3.5-5.1); Sodium 138 mmol/L (136-145)
[2020-06-15 07:23] LABS: Albumin Globulin Ratio 0.9 (0.9-2); Alkaline Phosphatase 44 U/L (45-117); Bilirubin,Total 0.4 mg/dl (0.2-1); C Reactive Protein < 0.29 mg/dl (0-0.29); Creatine Kinase 1611 U/L (26-192); Ferritin 36.5 ng/ml (8-388); Globulin 3.8 gm/dl (2.5-4.0); NT Pro B Type Natriuretic Pept 1043 pg/ml (0-450); Phosphorus 3.8 mg/dl (2.5-4.9); Total Protein 7.4 gm/dl (6.4-8.2)
--- NOTE | 2020-06-15 08:14 | Cardiology Progress Note ---
Date of Service June 15, 2020 Assessment & Plan Admission and Anticipated Discharge Date Admission Date: June 14, 2020 Subjective She notes that her scapular discomfort has improved but still persist through 2 to 4 mg of morphine. She was able to sleep well last night and slept on her back without significant discomfort. She denies any lightheadedness or dizziness. The only time she has chest discomfort is if she has back discomfort at same time. She denies any pain taking a deep breath. She has no lower extremity edema. She is unaware of any palpitations or fluttering even with runs of nonsustained VT and ventricular couplets and triplets on the monitor. Today's visit was completed as a telemedicine visit. She was in her room in 2005 in the hospital I was at the nurses station. She consented to a telemedicine visit. In total I spent 15 minutes reviewing her chart and in discussion with her and documentation. Results & Data ([facility]) Vital Signs (Past 12 Hours) Vital Signs Temp Pulse Pulse Resp BP BP Pulse Ox 06/15/20 08:00 36.9 C 62 18 124/76 94 06/15/20 03:49 37.0 C 65 18 105/62 97 06/15/20 00:00 36.9 C 74 18 105/55 L 97 06/14/20 23:50 60 06/14/20 21:16 37.1 C 65 18 109/69 97 No exam was performed as it is a virtual visit. EKG normal sinus rhythm normal ECG cupola man reveals occasional PVCs and occasional ventricular couplets, triplets and runs of nonsustained VT up to [address] angiogram of her chest is negative for PE or aortic dissection or pericardial effusion Impression: 1. myocarditis secondary to COVID-19 2. COVID infection 3. PVCs and ventricular couplets and short runs of nonsustained VT 4. Normal biventricular size and function, global longitudinal strain was -19, mild left ventricular hypertrophy is most consistent with myocardial edema in a young healthy patient I would increase her metoprolol to 12-1/2 mg 3 times daily. We will have to watch for hypotension. Her potassium and magnesium are acceptable. She remains on colchicine 0.6 mg twice daily I did reach out to heart failure at [facility] yesterday as well as the EP service at [facility]. Both are in agreement with her current care. If her biomarkers were to worsen including her BNP and her coagulation factors then 1 may need to consider Remdesivir I will give her 15 mg of IV Toradol as she is using morphine 4 mg every 4 hours for her discomfort I would recommend an echocardiogram tomorrow (limited) to assess her LV function and global longitudinal strain If she continues to have frequent ventricular ectopy we may need to consider a LifeVest upon discharge
[2020-06-15] MEDS ORDERED: KETOROLAC TROMETHAMINE 15 MG/ML VIAL IV ONE (08:15)
[2020-06-15] MEDS: COLCHICINE 0.6 MG TAB PO SCH ×2 (08:25→22:12)
[2020-06-15] MEDS: METOPROLOL TARTRATE 25 MG TAB PO SCH ×3 (08:26→22:08)
--- NOTE | 2020-06-15 09:53 | Hospitalist Progress Note ---
Date of Service June 15, 2020 Assessment & Plan (1) Myocarditis due to 2019 novel coronavirus: Myocarditis due to COVID 19/elevated troponin- echo with LVH, likely swelling from myocarditis noted that EF is normal at 55%, no evidence of cardiomyopathy will get repeat echo tomorrow to re-assess EF BNP is 1000 today troponin peaked yesterday > 50, today it is trending down at 39 treatment will be Decadron 6mg IV daily, colchicine 0.6mg BID she had pain relief after Toradol 15mg IV, so will start Motrin 600mg q6 will add Protonix 40mg PO daily for GI protection as she will be on Motrin and Decadron (2) Non-sustained ventricular tachycardia: had a run of 17 beats and then 16 beats last night, due to myocarditis potassium and magnesium are acceptable metoprolol 12.5mg BID started yesterday, will increase to TID today, monitor closely on telemetry (3) Elevated troponin I level: due to myocarditis, peaked > 50 yesterday, today it is 39 repeat tomorrow (4) Hypokalemia: Potassium 3.2 upon admission. K is normal today (5) Lab test positive for detection of COVID-19 virus: Test is positive from [facility] on 06/08/2020 she was tested because of known exposure to COVID, she did not have symptoms until a few days prior to admission main symptoms were back and chest pain, dyspnea Admission and Anticipated Discharge Date Admission Date: June 14, 2020 Subjective patient feels well, she got a dose of Toradol this morning that helped with her back pain a lot the morphine helps as well but she is hoping to not need pain medications on discharge reviewed chart since admission including echo report, imaging, labs labs this morning show troponin down to 39, WBC 10k, Hb 11.7, d dimer is < 190 DNP is up at 1043, CRP < 0.[address] Cagle, plan for repeat echo tomorrow she had another brief run of non-sustained v tach last night, Dr. Cagle increased her metoprolol dose to 12.5mg TID, will see how she feels, follow BP there is a chance she could go tomorrow, may need a life vest will discuss with Dr. Cagle tomorrow I updated the patient's mother over the phone Review of Systems Review of Systems: All systems reviewed & are unremarkable except as noted in Subjective Constitutional: no fever, no chills, no sweats, no fatigue, no malaise and no weakness Respiratory: no cough and no dyspnea Cardiovascular: no chest pain, no dyspnea, no dyspnea at rest, no dyspnea on exertion and no edema Musculoskeletal: + back pain (thoracic area) Physical Exam Constitutional: WD/WN, vitals as above Eyes: PERRL, conjunctivae normal, anicteric sclerae ENMT: external ear and nose normal, oropharynx normal Neck: trachea midline, no thyromegaly Respiratory: normal respiratory effort, lungs clear to auscultation Cardiovascular: RRR, no murmur, no edema Gastrointestinal (Abdomen): normal bowel sounds, soft, nontender, no hepatosplenomegaly Musculoskeletal: no cyanosis or clubbing, extremities motor strength 5/5 Skin: no rashes, warm and dry Neurologic: patellar DTR's 2+ bilat, sensation intact and PERRL, EOMI, accommodation nl, no face palsy, no dysarthria Psychiatric: A+Ox3, euthymic affect Lymphatic: no cervical or axillary lymphadenopathy Results & Data Results & Data ([facility]) Vital Signs (Past 12 Hours) Vital Signs Temp Pulse Pulse Resp BP BP Pulse Ox 06/15/20 08:00 36.9 C 62 18 124/76 94 06/15/20 03:49 37.0 C 65 18 105/62 97 06/15/20 00:00 36.9 C 74 18 105/55 L 97 06/14/20 23:50 60 Laboratory Results Laboratory Results - last 24 hr 06/14/20 06/14/20 06/14/20 04:55 10:55 16:15 WBC RBC Hgb Hct MCV MCH MCHC RDW Std Deviation RDW Coeff of Meek Plt Count MPV Immature Gran % (Auto) Neut % (Auto) Lymph % (Auto) [place] % (Auto) Eos % (Auto) Baso % (Auto) Neut # (Auto) Lymph # (Auto) [place] # (Auto) Eos # (Auto) Baso # (Auto) Immature Gran # (Auto) ESR 4 D-Dimer Sodium 141 Potassium 4.0 D Chloride 108 H Carbon Dioxide 26 Anion Gap 7.0 BUN 7 D Creatinine 0.73 Est Cr Clr Drug Dosing 119.5 Est GFR ( Amer) 137.4 Est GFR (Non-Af Amer) 118.6 BUN/Creatinine Ratio 9.5 L Glucose 135 H Calcium 9.0 Phosphorus 2.4 L Magnesium 2.2 2.1 Ferritin Total Bilirubin AST ALT Alkaline Phosphatase Lactate Dehydrogenase Total Creatine Kinase Troponin I 52.800 H* C-Reactive Protein < 0.29 NT-Pro-B Natriuret Pep 449 Total Protein Albumin Globulin Albumin/Globulin Ratio Adenovirus (PCR) B. pertussis DNA (PCR) B.parapertussis DNA PCR C. pneumoniae DNA (PCR) Coronavirus OC43 (PCR) Coronavirus HKU1 (PCR) Coronavirus 229E (PCR) COVID-19 PCR Coronavirus NL63 (PCR) Human Metapneumovir PCR Influenza Type A (PCR) Influenza Type B (PCR) M. pneumoniae (PCR) Parainfluenza 1 (PCR) Parainfluenza 2 (PCR) Parainfluenza 3 (PCR) Parainfluenza 4 (PCR) RSV (PCR) Entero/Rhino (PCR) 06/14/20 06/14/20 06/15/20 19:18 Unknown 02:52 WBC RBC Hgb Hct MCV MCH MCHC RDW Std Deviation RDW Coeff of Meek Plt Count MPV Immature Gran % (Auto) Neut % (Auto) Lymph % (Auto) [place] % (Auto) Eos % (Auto) Baso % (Auto) Neut # (Auto) Lymph # (Auto) [place] # (Auto) Eos # (Auto) Baso # (Auto) Immature Gran # (Auto) ESR D-Dimer Sodium 139 Potassium 4.3 Chloride 106 Carbon Dioxide 27 Anion Gap 6.0 BUN 8 Creatinine 0.73 Est Cr Clr Drug Dosing 119.5 Est GFR ( Amer) 137.4 Est GFR (Non-Af Amer) 118.6 BUN/Creatinine Ratio 11.3 Glucose 118 H Calcium 8.9 Phosphorus 3.6 D Magnesium 2.0 Ferritin Total Bilirubin AST ALT Alkaline Phosphatase Lactate Dehydrogenase Total Creatine Kinase Troponin I 52.600 H* C-Reactive Protein NT-Pro-B Natriuret Pep Total Protein Albumin Globulin Albumin/Globulin Ratio Adenovirus (PCR) Not Detected B. pertussis DNA (PCR) Not Detected B.parapertussis DNA PCR Not Detected C. pneumoniae DNA (PCR) Not Detected Coronavirus OC43 (PCR) Not Detected Coronavirus HKU1 (PCR) Not Detected Coronavirus 229E (PCR) Not Detected COVID-19 PCR DETECTED A* Coronavirus NL63 (PCR) Not Detected Human Metapneumovir PCR Not Detected Influenza Type A (PCR) Not Detected Influenza Type B (PCR) Not Detected M. pneumoniae (PCR) Not Detected Parainfluenza 1 (PCR) Not Detected Parainfluenza 2 (PCR) Not Detected Parainfluenza 3 (PCR) Not Detected Parainfluenza 4 (PCR) Not Detected RSV (PCR) Not Detected Entero/Rhino (PCR) Not Detected 06/15/20 06/15/20 06/15/20 06:11 06:11 06:11 WBC 10.90 H RBC 3.87 L Hgb 11.7 L Hct 35.2 L MCV 91.0 MCH 30.2 MCHC 33.2 RDW Std Deviation 44.8 RDW Coeff of Meek 13.6 Plt Count 269 MPV 11.4 H Immature Gran % (Auto) 0.2 Neut % (Auto) 86.9 Lymph % (Auto) 8.3 [place] % (Auto) 4.6 Eos % (Auto) 0.0 Baso % (Auto) 0.0 Neut # (Auto) 9.47 H Lymph # (Auto) 0.91 L [place] # (Auto) 0.50 Eos # (Auto) 0.00 Baso # (Auto) 0.00 Immature Gran # (Auto) 0.02 ESR 4 D-Dimer Sodium 138 Potassium 4.1 Chloride 106 Carbon Dioxide 27 Anion Gap 5.0 BUN 8 Creatinine 0.64 Est Cr Clr Drug Dosing 136.4 Est GFR ( Amer) 148.9 Est GFR (Non-Af Amer) 128.5 BUN/Creatinine Ratio 13.1 Glucose 114 H Calcium 8.9 Phosphorus 3.8 Magnesium 2.1 Ferritin 36.5 Total Bilirubin 0.4 AST 269 H ALT 49 Alkaline Phosphatase 44 L Lactate Dehydrogenase Total Creatine Kinase 1611 H Troponin I 39.000 H* C-Reactive Protein < 0.29 NT-Pro-B Natriuret Pep 1043 H Total Protein 7.4 Albumin 3.6 Globulin 3.8 Albumin/Globulin Ratio 0.9 Adenovirus (PCR) B. pertussis DNA (PCR) B.parapertussis DNA PCR C. pneumoniae DNA (PCR) Coronavirus OC43 (PCR) Coronavirus HKU1 (PCR) Coronavirus 229E (PCR) COVID-19 PCR Coronavirus NL63 (PCR) Human Metapneumovir PCR Influenza Type A (PCR) Influenza Type B (PCR) M. pneumoniae (PCR) Parainfluenza 1 (PCR) Parainfluenza 2 (PCR) Parainfluenza 3 (PCR) Parainfluenza 4 (PCR) RSV (PCR) Entero/Rhino (PCR) 06/15/20 06/15/20 06/15/20 06:11 06:11 06:11 WBC RBC Hgb Hct MCV MCH MCHC RDW Std Deviation RDW Coeff of Meek Plt Count MPV Immature Gran % (Auto) Neut % (Auto) Lymph % (Auto) [place] % (Auto) Eos % (Auto) Baso % (Auto) Neut # (Auto) Lymph # (Auto) [place] # (Auto) Eos # (Auto) Baso # (Auto) Immature Gran # (Auto) ESR D-Dimer < 190 Sodium Potassium Chloride Carbon Dioxide Anion Gap BUN Creatinine Est Cr Clr Drug Dosing Est GFR ( Amer) Est GFR (Non-Af Amer) BUN/Creatinine Ratio Glucose Calcium Phosphorus Cancelled Magnesium Ferritin Cancelled Total Bilirubin AST ALT Alkaline Phosphatase Lactate Dehydrogenase 721 H Total Creatine Kinase Troponin I Cancelled C-Reactive Protein NT-Pro-B Natriuret Pep Cancelled Total Protein Albumin Globulin Albumin/Globulin Ratio Adenovirus (PCR) B. pertussis DNA (PCR) B.parapertussis DNA PCR C. pneumoniae DNA (PCR) Coronavirus OC43 (PCR) Coronavirus HKU1 (PCR) Coronavirus 229E (PCR) COVID-19 PCR Coronavirus NL63 (PCR) Human Metapneumovir PCR Influenza Type A (PCR) Influenza Type B (PCR) M. pneumoniae (PCR) Parainfluenza 1 (PCR) Parainfluenza 2 (PCR) Parainfluenza 3 (PCR) Parainfluenza 4 (PCR) RSV (PCR) Entero/Rhino (PCR) Medications Administered Current Inpatient Medications Colchicine (Colchicine 0.6 Mg Tab) 0.6 mg PO BID HERMILO Stop: 07/14/20 10:44 Last Admin: 06/15/20 08:25 Dose: 0.6 mg Documented by: Enoxaparin Sodium (Enoxaparin Inj 30 Mg/0.3 Ml Syr) 30 mg SQ Q12 HER[facility]ILO Stop: 07/14/20 14:59 Last Admin: 06/15/20 08:24 Dose: 30 mg Documented by: Dexamethasone 6 mg/ Syringe 1.5 mls @ 1 mls/min IV DAILY [facility] Stop: 07/16/20 08:59 Ibuprofen (Ibuprofen 600 Mg Tab) 600 mg PO Q6H [facility] Stop: 07/15/20 09:14 Metoprolol Tartrate (Metoprolol Tartrate 25 Mg Tab) 12.5 mg PO TID [facility] Stop: 07/15/20 08:59 Last Admin: 06/15/20 08:26 Dose: 12.5 mg Documented by: Morphine Sulfate (Morphine Sulfate 4 Mg/Ml 1 Ml Carp\Vial) 4 mg IV Q4 PRN PRN Reason: Pain Stop: 06/28/20 09:34 Last Admin: 06/15/20 06:41 Dose: 4 mg Documented by: Ondansetron HCl (Ondansetron Inj 2 Mg/Ml 2 Ml Vial) 4 mg IV Q6H PRN PRN Reason: Nausea Stop: 07/14/20 07:56 Last Admin: 06/15/20 06:41 Dose: 4 mg Documented by: Pantoprazole Sodium (Pantoprazole 40 Mg Tab) 40 mg PO QAM [facility] Stop: 07/15/20 09:14 PG Care Time/CCT Total # of Minutes Spent Total Time Spent: 33 Total Time Spent with Patient: Total time spent is greater than 50% in coordination of care (as documented) at patient's floor/unit and/or counseling patient: Coding Level of Care Code 97302 Subseq Hosp Care Lvl 3 Diagnoses Myocarditis due to 2019 novel coronavirus U07.1; I40.0 Non-sustained ventricular tachycardia I47.2 Elevated troponin I level R79.89 Hypokalemia E87.6 Lab test positive for detection of COVID-19 virus U07.1
[2020-06-15] MEDS: IBUPROFEN 600 MG TAB PO SCH ×3 (10:37→22:08)
[2020-06-15] MEDS: PANTOprazole 40 MG TAB PO SCH (10:38)
[2020-06-15] MEDS ORDERED: TRAMADOL HCL 50 MG TABLET PO PRN (18:27)
[2020-06-16] MEDS: IBUPROFEN 600 MG TAB PO SCH ×4 (05:14→21:23)
[2020-06-16 06:34] LABS: Basophils # (auto) 0.02 K/uL (0-0.2); Basophils % (auto) 0.2 %; Eosinophils # (auto) 0.02 K/uL (0-0.5); Eosinophils % (auto) 0.2 %; Hematocrit (blood only) 35.9 % (37-47); Hemoglobin 11.5 g/dL (12.0-16.0); Immature Granulocytes # (auto) 0.02 K/uL (0.00-0.02); Immature Granulocytes % (auto) 0.2 %; Lymphocytes # (auto) 3.55 K/uL (1.2-3.4); Lymphocytes % (auto) 30.8 %; Mean Corpuscular Hemoglobin 29.6 pg (25-34); Mean Corpuscular Volume 92.3 fL (80-100); Mean Platelet Volume 11.5 fL (7.4-10.4); Monocytes % (auto) 9.6 %; Platelet Count 246 K/uL (130-400); RDW Coefficient of Variation 13.7 % (11.5-14.5); RDW Standard Deviation 46.4 fL (36.4-46.3); Red Blood Count 3.89 M/uL (4.2-5.4); White Blood Count 11.51 K/uL (4.8-10.8)
[2020-06-16 07:15] LABS: D Dimer < 190 ug/L FEU (0-500)
[2020-06-16 07:46] LABS: Albumin Globulin Ratio 0.9 (0.9-2); Albumin Level 3.3 gm/dl (3.4-5.0); BUN Creatinine Ratio 20.6 (10-20); Bilirubin,Total 0.4 mg/dl (0.2-1); Calcium 9.3 mg/dl (8.5-10.1); Creatinine Clr Calc Pharmacy 109.1 ml/min; Est GFR (Non-African American) 106.1; Globulin 3.6 gm/dl (2.5-4.0); Magnesium 2.2 mg/dl (1.8-2.4); Total Protein 6.9 gm/dl (6.4-8.2)
[2020-06-16 08:09] LABS: Troponin I 49.6 ng/ml (0-0.045)
[2020-06-16] MEDS: ENOXAPARIN INJ 30 MG/0.3 ML SYR SQ SCH ×2 (08:25→21:24)
[2020-06-16] MEDS: COLCHICINE 0.6 MG TAB PO SCH ×2 (08:25→21:23)
[2020-06-16] MEDS: METOPROLOL TARTRATE 25 MG TAB PO SCH ×2 (08:26→21:24)
[2020-06-16] MEDS: PANTOprazole 40 MG TAB PO SCH (08:26)
[2020-06-16] MEDS ORDERED: dexAMETHasone 6 MG in SYRINGE 0 ML IV SCH (09:00)
--- NOTE | 2020-06-16 09:11 | Cardiology Progress Note ---
Date of Service June 16, 2020 Assessment & Plan Admission and Anticipated Discharge Date Admission Date: June 14, 2020 Subjective She is feeling much better. Her scapular discomfort is better she is able to take a deep breath. She is unaware of any palpitations. She denies any lightheadedness or dizziness presyncope or syncope. She denies any lower extremity edema. Her appetite is improving. She is feeling lonely and isolated. Results & Data ([facility]) Vital Signs (Past 12 Hours) Vital Signs Temp Pulse Pulse Resp BP Pulse Ox 06/16/20 08:18 36.7 C 84 18 111/80 98 06/16/20 07:52 57 L 06/16/20 04:00 36.9 C 70 16 104/57 L 98 06/15/20 21:32 36.9 C 62 18 121/51 L 98 No exam was performed as it is a virtual visit. EKG normal sinus rhythm normal ECG desk monitor reveals rare PVCs Impression: 1. myocarditis secondary to COVID-19 2. COVID infection 3. PVCs and ventricular couplets and short runs of nonsustained VT-improving 4. Normal biventricular size and function, global longitudinal strain was -19, mild left ventricular hypertrophy is most consistent with myocardial edema in a young healthy patient Her ectopy on the monitor is dramatically better. She is had very rare isolated PVCs in the last 18 hours or so. I would increase her metoprolol to 25 mg twice daily. She from a pain standpoint is dramatically better with Motrin and colchicine. I would add Pepcid 20 mg twice daily to protect her stomach. I did discuss with her that she should stay in the hospital another day. It is important to make sure that her ventricular ectopy has resolved. The risk over the next couple of weeks is that of sudden cardiac . She will undergo echocardiography today to reassess her LV function, LV strain, and make sure she does not have a pericardial effusion. In addition on her echocardiogram over the weekend she did have mild to moderate mitral regurgitation that was worse after a PVC beat. We discussed that she will need to be on medication for the next 6 months. We also discussed that she will be very limited with regards to exercise in the next 6 months. She will be able to walk and climb stairs but cannot do regular aerobic exercise. We also discussed avoiding Sudafed, Afrin nasal spray, and other stimulants. This was discussed with hospitalist service as well
[2020-06-16] MEDS ORDERED: METOPROLOL TARTRATE 25 MG TAB PO ONE (09:12)
[2020-06-16] MEDS: FAMOTIDINE 20 MG TAB PO SCH ×2 (09:49→21:23)
[2020-06-16] MEDS ORDERED: LORazepam 0.5 MG TAB ONE (12:00)
[2020-06-16] MEDS ORDERED: LORazepam 0.5 MG TAB PO PRN (12:00)
--- NOTE | 2020-06-16 12:29 | XCELERA ---
[id number]
--- NOTE | 2020-06-16 14:29 | Hospitalist Progress Note ---
Date of Service June 16, 2020 Assessment & Plan (1) Myocarditis due to 2019 novel coronavirus: Myocarditis due to COVID 19/elevated troponin- echo with LVH, likely swelling from myocarditis repeat echo on 06/16 with normal wall thickness noted that EF is normal at 55% on both echocardiograms, no evidence of cardiomyopathy BNP is 1000 two days in a row, no signs of heart failure troponin remains elevated at 49 treatment will be Decadron 6mg IV daily, colchicine 0.6mg BID Motrin 600mg q6 Protonix 40mg PO daily for GI protection as she will be on Motrin and Decadron (2) Non-sustained ventricular tachycardia: had a run of 17 beats and then 16 beats 06/15, due to myocarditis some PVC last night and then 4 beat run of V tach today potassium and magnesium are acceptable metoprolol 25mg BID (3) Elevated troponin I level: due to myocarditis, peaked > 50 (4) Hypokalemia: Potassium 4.0 today (5) Lab test positive for detection of COVID-19 virus: Test is positive from [facility] on 06/08/2020 she was tested because of known exposure to COVID, she did not have symptoms until a few days prior to admission main symptoms were back and chest pain, dyspnea Admission and Anticipated Discharge Date Admission Date: June 14, 2020 Subjective patient doing well, pain is much better controlled she is starting to have some anxiety being stuck here in the hospital room no fever/chills, no dyspnea, no muscle aches reviewed tele, had some PVC's over night, then had a 4 beat run of V tach this afternoon discussed with Dr. Cagle, will keep here additional night to continue to monitor for ectopy echo today with EF of 55%, ventricle wall thickness is now normal compared to initial echocardiogram BNP remains at 1000, electrolytes are stable Review of Systems Review of Systems: All systems reviewed & are unremarkable except as noted in Subjective Constitutional: no fever Respiratory: no cough and no dyspnea Cardiovascular: no chest pain Gastrointestinal: no abdominal pain, no nausea, no vomiting, no constipation and no diarrhea/loose stools Psychiatric: + anxiety Physical Exam Constitutional: WD/WN, vitals as above Eyes: PERRL, conjunctivae normal, anicteric sclerae ENMT: external ear and nose normal, oropharynx normal Neck: trachea midline, no thyromegaly Respiratory: normal respiratory effort, lungs clear to auscultation Cardiovascular: RRR, no murmur, no edema Gastrointestinal (Abdomen): normal bowel sounds, soft, nontender, no h epatosplenomegaly Musculoskeletal: no cyanosis or clubbing, extremities motor strength 5/5 Skin: no rashes, warm and dry Neurologic: patellar DTR's 2+ bilat, sensation intact and PERRL, EOMI, accommodation nl, no face palsy, no dysarthria Psychiatric: Orientation: alert and oriented x 3 Affect: + anxious affect Lymphatic: no cervical or axillary lymphadenopathy Results & Data Results & Data ([facility]) Vital Signs (Past 12 Hours) Vital Signs Temp Pulse Pulse Resp BP Pulse Ox 06/16/20 12:09 36.6 C 70 20 114/97 98 06/16/20 08:18 36.7 C 84 18 111/80 98 06/16/20 07:52 57 L 06/16/20 04:00 36.9 C 70 16 104/57 L 98 Laboratory Results Laboratory Results - last 24 hr 06/16/20 06/16/20 06/16/20 06:03 06:03 06:03 WBC 11.51 H RBC 3.89 L Hgb 11.5 L Hct 35.9 L MCV 92.3 MCH 29.6 MCHC 32.0 RDW Std Deviation 46.4 H RDW Coeff of Meek 13.7 Plt Count 246 MPV 11.5 H Immature Gran % (Auto) 0.2 Neut % (Auto) 59.0 Lymph % (Auto) 30.8 [place] % (Auto) 9.6 Eos % (Auto) 0.2 Baso % (Auto) 0.2 Neut # (Auto) 6.80 H Lymph # (Auto) 3.55 H [place] # (Auto) 1.10 H Eos # (Auto) 0.02 Baso # (Auto) 0.02 Immature Gran # (Auto) 0.02 D-Dimer < 190 Sodium 139 Potassium 4.0 Chloride 107 Carbon Dioxide 26 Anion Gap 6.0 BUN 16 D Creatinine 0.80 Est Cr Clr Drug Dosing 109.1 Est GFR ( Amer) 123.0 Est GFR (Non-Af Amer) 106.1 BUN/Creatinine Ratio 20.6 H Glucose 75 Calcium 9.3 Magnesium 2.2 Total Bilirubin 0.4 AST 121 H ALT 39 Alkaline Phosphatase 40 L Troponin I 49.600 H* NT-Pro-B Natriuret Pep 1048 H Total Protein 6.9 Albumin 3.3 L Globulin 3.6 Albumin/Globulin Ratio 0.9 Medications Administered Current Inpatient Medications Colchicine (Colchicine 0.6 Mg Tab) 0.6 mg PO BID [facility] Stop: 07/14/20 10:44 Last Admin: 06/16/20 08:25 Dose: 0.6 mg Documented by: Dexamethasone (Dexamethasone 4 Mg Tab) 6 mg PO QAM [facility] Stop: 07/17/20 08:59 Enoxaparin Sodium (Enoxaparin Inj 30 Mg/0.3 Ml Syr) 30 mg SQ Q12 [facility] Stop: 07/14/20 14:59 Last Admin: 06/16/20 08:25 Dose: 30 mg Documented by: Famotidine (Famotidine 20 Mg Tab) 20 mg PO BID HERMILO Stop: 07/16/20 09:14 Last Admin: 06/16/20 09:49 Dose: 20 mg Documented by: Ibuprofen (Ibuprofen 600 Mg Tab) 600 mg PO Q6H [facility] Stop: 07/15/20 09:14 Last Admin: 06/16/20 08:27 Dose: 600 mg Documented by: Lorazepam (Lorazepam 0.5 Mg Tab) 0.5 mg PO Q8 PRN PRN Reason: Anxiety Stop: 07/16/20 11:59 Metoprolol Tartrate (Metoprolol Tartrate 25 Mg Tab) 25 mg PO BID [facility] Stop: 07/16/20 20:59 Morphine Sulfate (Morphine Sulfate 4 Mg/Ml 1 Ml Carp\Vial) 4 mg IV Q4 PRN PRN Reason: Pain Stop: 06/28/20 09:34 Last Admin: 06/15/20 06:41 Dose: 4 mg Documented by: Ondansetron HCl (Ondansetron Inj 2 Mg/Ml 2 Ml Vial) 4 mg IV Q6H PRN PRN Reason: Nausea Stop: 07/14/20 07:56 Last Admin: 06/15/20 06:41 Dose: 4 mg Documented by: Pantoprazole Sodium (Pantoprazole 40 Mg Tab) 40 mg PO QAM [facility] Stop: 07/15/20 09:14 Last Admin: 06/16/20 08:26 Dose: 40 mg Documented by: Tramadol HCl (Tramadol Hcl 50 Mg Tablet) 50 mg PO Q4H PRN PRN Reason: Pain Stop: 07/15/20 18:26 Last Admin: 06/15/20 23:35 Dose: 50 mg Documented by: PG Care Time/CCT Total # of Minutes Spent Total Time Spent with Patient: Total time spent is greater than 50% in coordination of care (as documented) at patient's floor/unit and/or counseling patient: Coding Level of Care Code 83133 Subseq Hosp Care Lvl 3 Diagnoses Myocarditis due to 2019 novel coronavirus U07.1; I40.0 Non-sustained ventricular tachycardia I47.2 Elevated troponin I level R79.89 Hypokalemia E87.6 Lab test positive for detection of COVID-19 virus U07.1
[2020-06-16] MEDS ORDERED: LORazepam 0.5 MG TAB PO STA (22:25)
[2020-06-17] MEDS: IBUPROFEN 600 MG TAB PO SCH ×2 (04:00→09:08)
[2020-06-17 06:57] LABS: Basophils # (auto) 0.01 K/uL (0-0.2); Basophils % (auto) 0.1 %; Eosinophils # (auto) 0.02 K/uL (0-0.5); Eosinophils % (auto) 0.2 %; Immature Granulocytes # (auto) 0.03 K/uL (0.00-0.02); Immature Granulocytes % (auto) 0.3 %; Lymphocytes # (auto) 3.52 K/uL (1.2-3.4); Lymphocytes % (auto) 34.6 %; Mean Corpuscular Hemoglobin 30.8 pg (25-34); Mean Corpuscular Hgb Conc 33.3 g/dL (32-36); Mean Corpuscular Volume 92.3 fL (80-100); Mean Platelet Volume 11.3 fL (7.4-10.4); Monocytes # (auto) 1.06 K/uL (0.11-0.59); Monocytes % (auto) 10.4 %; Neutrophils # (auto) 5.54 K/uL (1.4-6.5); Neutrophils % (auto) 54.4 %; Platelet Count 237 K/uL (130-400); RDW Coefficient of Variation 13.5 % (11.5-14.5); RDW Standard Deviation 45.3 fL (36.4-46.3); White Blood Count 10.18 K/uL (4.8-10.8)
[2020-06-17 07:35] LABS: Albumin Level 3.3 gm/dl (3.4-5.0); BUN Creatinine Ratio 25.2 (10-20); Calcium 8.9 mg/dl (8.5-10.1); Creatinine Clr Calc Pharmacy 113.3 ml/min; Est GFR (African American) 128.8; Est GFR (Non-African American) 111.1; Magnesium 2.2 mg/dl (1.8-2.4); Potassium 3.7 mmol/L (3.5-5.1)
[2020-06-17 07:38] LABS: Albumin Globulin Ratio 0.9 (0.9-2); Bilirubin,Total 0.3 mg/dl (0.2-1); Globulin 3.6 gm/dl (2.5-4.0); Total Protein 6.9 gm/dl (6.4-8.2)
[2020-06-17] MEDS ORDERED: dexAMETHasone 4 MG TAB PO SCH (09:00)
[2020-06-17] MEDS: ENOXAPARIN INJ 30 MG/0.3 ML SYR SQ SCH (09:08)
[2020-06-17] MEDS: METOPROLOL TARTRATE 25 MG TAB PO SCH (09:09)
[2020-06-17] MEDS: PANTOprazole 40 MG TAB PO SCH (09:10)
[2020-06-17] MEDS: COLCHICINE 0.6 MG TAB PO SCH (09:10)
[2020-06-17] MEDS: FAMOTIDINE 20 MG TAB PO SCH (09:10)
--- NOTE | 2020-06-17 10:22 | Cardiology Progress Note ---
Date of Service June 17, 2020 Assessment & Plan Admission and Anticipated Discharge Date Admission Date: June 14, 2020 Subjective She feels well today. She denies any chest pain or chest pressure. She had the best night of sleep she is had in a long period of time. She has no palpitations or fluttering. She denies any orthostatic symptoms. She has no shortness of breath or heart failure symptoms. She denies any lower extremity edema. Overall she is feeling well. Results & Data ([facility]) Vital Signs (Past 12 Hours) Vital Signs Temp Pulse Pulse Resp BP Pulse Ox 06/17/20 08:11 36.6 C 62 19 107/77 99 06/17/20 04:00 36.5 C 59 L 18 105/59 L 99 06/17/20 00:23 81 06/16/20 22:53 36.9 C 63 18 94/60 L 97 No exam was performed as it is a virtual visit. EKG normal sinus rhythm normal ECG monitoring manager reveals rare PVCs Impression: 1. myocarditis secondary to COVID-19 2. COVID infection 3. PVCs and ventricular couplets and short runs of nonsustained VT-improving 4. Normal biventricular size and function, global longitudinal strain was -19, mild left ventricular hypertrophy is most consistent with myocardial edema in a young healthy patient She had rare PVCs on the monitor there was one 4 beat run of nonsustained VT which is been asymptomatic. It is the only episode of nonsustained VT in the last 36 hours. From my standpoint she can be discharged home from a cardiac standpoint on the following medications: 1 metoprolol 25 mg twice daily 2. Colchicine 0.6 mg twice daily 3. Motrin 600 mg 3 times daily with food 4. Pantoprazole 40 mg daily We will arrange for outpatient follow-up in approximately 2 weeks. She will need an echocardiogram in a month. We will wean her Motrin as an outpatient as she hopefully continues to feel well. She will remain on colchicine and metoprolol long-term. We discussed her if she has any lightheadedness or dizziness to let us know and we would need to reduce her beta-solange dose. Discussed if she has any palpitations or lightheadedness associated with palpitations she immediately needs to let us know. We discussed restrictions including no exercise for 3 to 6 months. She can walk and climb stairs but should not do anything beyond mild exertion. We discussed avoiding sexual activity. We discussed avoiding alcohol as it can be additionally toxic to her heart muscle. All this was discussed with Dr. Darnell as well is Lillie and her parents
--- NOTE | 2020-06-17 10:40 | Discharge Summary ---
Date of Service June 17, 2020 Admission HPI Per Admitting Provider The patient is a 20-year-old female with no significant past medical history, who presents to the emergency department with complaint of severe interscapular pain that began overnight. She reports that her symptoms initially began July 02 of generalized fatigue, muscle aches and malaise. She did get a report of a positive COVID-19 test from emergency health services on June 08, had worsening of her symptoms on June 09, and then developed symptoms of severe back pain this past evening. Work-up in the emergency department included abnormal laboratories with troponin of 20.4, total CK 745, CK-MB 62.3, CK-MB ratio 8.4, and AST 103. I have asked that a CTA of chest be ordered by the ED to further assess back pain possibility of aortic dissection, and get view of possible pericardial effusion. 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 Discharge Exam Constitutional WD/WN, vitals as above Eyes PERRL, conjunctivae normal, anicteric sclerae ENMT external ear and nose normal, oropharynx normal Neck trachea midline, no thyromegaly Respiratory normal respiratory effort, lungs clear to auscultation Cardiovascular RRR, no murmur, no edema Gastrointestinal (Abdomen) normal bowel sounds, soft, nontender, no hepatosplenomegaly Musculoskeletal no cyanosis or clubbing, extremities motor strength 5/5 Skin no rashes, warm and dry Neurologic patellar DTR's 2+ bilat, sensation intact and PERRL, EOMI, accommodation nl, no face palsy, no dysarthria Psychiatric A+Ox3, euthymic affect Orientation: alert and oriented x 3 Affect: + anxious affect Lymphatic no cervical or axillary lymphadenopathy Discharge Data Allergies Allergy/AdvReac Type Severity Reaction Status Date / Time No Known Allergies Allergy Unverified 06/14/20 04:29 Consultations 06/14/20 05:56 ED Decision to Admit Stat 06/14/20 07:57 Consult Cardiology Routine Consult Case Management - Discharge Planning Routine Ordered Studies 06/14/20 06:29 CT angio chest dissec wo/w con Urgent Hospital Course (1) Myocarditis due to 2019 novel coronavirus: Myocarditis due to COVID 19/elevated troponin- echo with LVH, likely swelling from myocarditis repeat echo on 06/16 with normal wall thickness noted that EF is normal at 55% on both echocardiograms, no evidence of cardiomyopathy BNP is 1000 two days in a row, no signs of heart failure troponin remains elevated at 49, will slowly improve, no need to follow as symptoms are largely resolved treatment will be Decadron 6mg PO daily for 5 more days colchicine 0.6mg BID for several months Motrin 600mg TID with meals for several weeks, will be tapered per Dr. Cagle Protonix 40mg PO daily for GI protection for the next month while on Decadron and Motrin vitals stable, no fever, no chest or back pain for two days discharge to home, remain in quarantine until 06/[address] Cagle in two weeks, plan for repeat echo in one month (2) Non-sustained ventricular tachycardia: had a run of 17 beats and then 16 beats 06/15, due to myocarditis some PVC last night and then 4 beat run of V tach 06/16 potassium and magnesium are acceptable metoprolol 25mg BID, tolerating well, no dizziness some occasional PVC's but overall ectopy is far less than time of admission instructed to call Dr. Cagle if she is experiencing frequent palpitations continue Lopressor 25mg BID instructed to limit her activity, no strenuous activity for 3-6 months, includes no exercise and no sexual activity (3) Elevated troponin I level: due to myocarditis, peaked > 50 (4) Hypokalemia: Potassium now stable after replacement (5) Lab test positive for detection of COVID-19 virus: Test is positive from [facility] on 06/08/2020 she was tested because of known exposure to COVID, she did not have symptoms until a few days prior to admission main symptoms were back and chest pain, dyspnea symptoms started 06/10/20, recommend she remain in quarantine until 06/20, she said she will plan to remain in her apartment until 06/22 Total Time Total Time Spent Total Time Spent (In Minutes): 35 minutes Total Time Includes: Examination of the Patient, Discharge Planning, Medication Reconciliation, Communication With Other Providers (Dr. Cagle) and Other ( discussed with her mother over the phone) Discharge Plan Discharge Items Patient Disposition: Home - Self-Care Reason For Visit: COVID-19 MYOCARDITIS Discharge Diagnosis: COVID 19 myocarditis Chest pain due to myocarditis Condition on Discharge: Good Goals: follow up closely with Dr. Cagle Activity: Per Instructions section Lifting: None Bathing: No limitations Sexual Activity: Wait until after follow-up appointment Exercise/Sports: Wait until after follow-up appointment Exercise Comment: no strenous activity such as exercise or sexual activity, likely 3-6 months Driving/Machine Use: No limitations Weightbearing: Full weightbearing Non-emergency contact: [employer] Call non-emergency contact if: you have any medication questions, your symptoms worsen, your pain is not controlled and you have a fever Follow-up/Referrals: Trip Cagle DO [Physician] - (2 weeks, his office will contact you) PCP,NO [Primary Care Provider] - Diet: Regular Addtl Attending Provider Instructions: Medications: - DEXAMETHASONE: steroid to reduce inflammation with COVID 19, take 6mg (3 tablets) in the morning for 5 more days - COLCHICINE: 0.6mg twice a day, this reduces inflammation with myocarditis, will be on this a few months, Dr. Cagle will instruct on when to stop - IBUPROFEN: take 600mg three times a day with food, also, this reduces inflammation in heart will not be on this as long as the colchicine, Dr. Cagle will taper you off - PROTONIX: this is a PPI, reduces acid production in the stomach, protects against ulcers while you are on steroids and ibuprofen can likely stop after one month as you will be off steroids and tapering off the ibuprofen NUVA RING: as we discussed, skip this month as it gives increased risk of blood clotting certainly the Nuva Ring has lower risks compared to oral contraceptives COVID 19 myocarditis responding well to Colchicine and Ibuprofen in terms of pain control far less ectopy on the heart monitor, just occasional PVC, no runs of ventricular tachycardia important that if you notice palpitations (heart racing or skipping) and it is happening more often, call Dr. Cagle you will continue on metoprolol 25mg twice a day, this is to control heart rate, prevent PVC's you may feel some occasional light headed sensation or dizziness as this can drop your blood pressure again, call Dr. Cagle if you are having this issue plan is to treat with Colchicine and Metoprolol for several months will repeat an echocardiogram in one month with Dr. Cagle activity restrictions: NO EXERCISE AND NO SEXUAL ACTIVITY for at least three months, will depend on how you improve alcohol restriction: NO ALCOHOL as this can cause further damage or toxicity to the heart Quarantine: recommended that you remain in isolation through this weekend, the would be ten days since symptoms started which is what the CDC recommends Pending Studies at Discharge: No Stand-Alone Forms: My [facility], Smoking Cessation Medications and DC Order Prescriptions: New pantoprazole 40 mg Tablet,Delayed Release (Dr/Ec) 40 mg PO QAM 30 Days Qty: 30 RF: 3 ibuprofen 600 mg Tablet 600 mg PO TID 14 Days Qty: 42 RF: 0 colchicine [Colcrys] 0.6 mg Tablet 0.6 mg PO BID 30 Days Qty: 60 RF: 3 metoprolol tartrate 25 mg Tablet 25 mg PO BID 30 Days Qty: 60 RF: 3 dexamethasone 2 mg tablet 6 mg PO QAM 5 Days Qty: 15 RF: 0 Discontinued etonogestrel-ethinyl estradiol 0.12-0.015 mg/24 hr ring 1 vag ring VAGINAL CONT RF: 0 Discharge Orders: Discharge Order (Routine); Ordered 06/17/20 Ordered By: Alexandru Walton/Other Patient Handouts: Mitral Insufficiency, Colchicine tablets or capsules, Pantoprazole tablets, Ibuprofen tablets and capsules, Metoprolol tablets, Dexamethasone tablets Admission Data Admit Date/Time: 06/14/20 06:53 Attending Provider: Alexandru Darnell Admit Provider: Keagan Quintero Primary Care Provider: PCP,NO Other Providers: Keagan Quintero ; Trip Cagle Other Interventions: Discharge Summary Assessment (RN) Last Done: 06/17/20 11:25 Coding Level of Care Code D/C Day Management >30 mins Diagnoses Myocarditis due to 2019 novel coronavirus U07.1; I40.0 Non-sustained ventricular tachycardia I47.2 Elevated troponin I level R79.89 Hypokalemia E87.6 Lab test positive for detection of COVID-19 virus U07.1
== END 2020-06-17 12:07 | disposition home or self-care (01) | DRG 177 ==
LOC: ED 04:20 → SUATTDRO 06:53 → 2E 06:53